=== PATIENT | male | born 1970 ===

== ENCOUNTER 2018-11-13 05:44 | Inpatient (IN) | payer OTHER ==
[2018-11-13] VITALS (13 sets, daily range): BP systolic 93–115; BP diastolic 53–78
[~2018-11-13] VITALS: Ht 180.3 cm; Wt 99.4 kg
[2018-11-13] MEDS ORDERED: Thrombin 5000 units TOPIC ONE ×2 (06:51→09:31)
[2018-11-13] MEDS ORDERED: Bacitracin 50000 Units Vial ONE (06:51)
[2018-11-13] MEDS ORDERED: Bupivacaine w/Epi 0.5% 30ml Vial INJ ONE ×2 (06:51→09:03)
[2018-11-13] MEDS ORDERED: ceFAZolin sod 1 GM in NS 55 ML IVPB ONE (07:00)
[2018-11-13] MEDS ORDERED: fentaNYL 100 mcg/2 mL IV ONE (08:11)
[2018-11-13] MEDS ORDERED: Midazolam 2mg/2ml Inj ONE (08:11)
[2018-11-13] MEDS ORDERED: Zemuron 50mg/5ml Inj IV ONE (08:15)
[2018-11-13] MEDS ORDERED: Vancomycin 1gm inj IVPB ONE (08:15)
[2018-11-13] MEDS ORDERED: ACETAMINOPHEN-1 EAC1 ORAL (08:20)
[2018-11-13] MEDS ORDERED: IBUPROFEN600 MG ORAL (08:21)
[2018-11-13] MEDS ORDERED: CYCLOBENZAPRINE10 MG ORAL (08:22)
[2018-11-13] MEDS ORDERED: FLUTICASONE PRO16 G1 NASAL (08:24)
[2018-11-13] MEDS ORDERED: MULTIVITAMINS1 EA11 ORAL (08:24)
[2018-11-13] MEDS ORDERED: [UNRECOGNIZED DRUG - OTHER] PO (08:26)
--- NOTE | 2018-11-13 08:51 | Pre-Procedure Note/Attestation ---
Pre-Procedure Note/Attestation Complete Prior to Procedure Procedure Narrative: L5S1 R redo laminectomy/discectomy Indications for Procedure Pre-Operative Diagnosis: L5S1 recurrent HNP Attestation I attest that I discussed the nature of the procedure; its benefits; risks and complications; and alternatives (and the risks and benefits of such alternatives ), prior to the procedure, with the patient (or the patient's legal bilingual call center representative). I attest that, if there was a reasonable possibility of needing a blood transfusion, the patient (or the patient's legal bilingual call center representative) was given the [facility] standardized written summary, pursuant to the Jorge Luis Keli Blood Safety Act ([place] Health and Safety Code # 1645, as amended). I attest that I re-evaluated the patient just prior to the surgery and that there has been no change in the patient's H&P, except as documented below: Mark Maloney MD Nov 13, 2018 08:51
--- NOTE | 2018-11-13 08:52 | Brief Operative Note ---
Immediate Post Operative Note Operative Note Pre-op Diagnosis: L5S1 recurrent HNP Procedure: L5s1 redo lami/discectomy Post-op Diagnosis: same as pre-op Findings: consistent w/pre-op dx studies Surgeon: lexie Onion Farmer: rupinder calloway Anesthesiologist: rubi Anesthesia: general Specimen: yes Complications: none Condition: stable Fluids: 1200 Estimated Blood Loss: minimal Drains: none Implant(s) used?: No Mark Maloney MD Nov 13, 2018 08:52
[2018-11-13] MEDS ORDERED: Glycopyrrolate 0.2mg/ml 1ml Vial ONE (09:18)
[2018-11-13] MEDS ORDERED: Ketorolac 30mg Inj ONE (09:18)
[2018-11-13] MEDS ORDERED: Morphine Sulfate 10mg/ml Inj ONE (09:18)
[2018-11-13] MEDS ORDERED: Sodium Chloride 10ml vial INJ ONE (09:18)
[2018-11-13] MEDS ORDERED: Bacitracin 50000 Units Vial IRRIG ONE (09:32)
[2018-11-13] MEDS ORDERED: NS Irrig 1000ml IRRIG ONE (09:33)
[2018-11-13] MEDS ORDERED: Sterile Water Irrig 1000ml IRRIG ONE (09:33)
--- NOTE | 2018-11-13 09:35 | Anethesia Preoperative Eval ---
Anesthesia Pre-op PMH/ROS General Date of Evaluation: Nov 13, 2018 Time of Evaluation: 08:20 Anesthesiologist: Domenico ASA Score: ASA 2 Mallampati Score Class I : Soft palate, uvula, fauces, pillars visible Class II: Soft palate, uvula, fauces visible Class III: Soft palate, base of uvula visible Class IV: Only hard plate visible Mallampati Classification: Class II Surgeon: Amara Diagnosis: Lumbar radiculopathy Surgical Procedure: L5-S1 laminotomy Anesthesia History: none Family History: no anesthesia problems Allergies: Coded Allergies: PENICILLINS (Verified Allergy, Intermediate, swelling, 11/13/18) SULFA (SULFONAMIDE ANTIBIOTICS) (Verified Allergy, Intermediate, itching, 11/13/18) Medications: see eMAR Patient NPO?: Yes NPO Date: Nov 12, 2018 NPO Time: 2300 Past Medical History Cardiovascular: Denies: HTN, CAD, [place], valve dz, arrhythmia, other Pulmonary: Reports: asthma - mild; Denies: COPD, SINDY, other Gastrointestinal/Genitourinary: Reports: GERD - mild; Denies: CRI, ESRD, other Neurologic/Psychiatric: Reports: other - chronic pain; Denies: dementia, CVA, depression/anxiety, TIA Endocrine: Denies: DM, hypothyroidism, steroids, other HEENT: Denies: cataract (L), cataract (R), glaucoma, PAUMA (L), PAUMA (R), other Hematology/Immune: Denies: anemia, DVT, bleeding disorder, other Musculoskeletal/Integumentary: Denies: OA, RA, DJD, DDD, edema, other Other: other - overweight PMH Narrative: as above PSxH Narrative: Back Sx, knee scope Anesthesia Pre-op Phys. Exam Physician Exam Last Vital Signs Date Time Temp Pulse Resp B/P (MAP) Pulse Ox O2 Delivery O2 Flow Rate FiO2 11/13/18 08:12 Room Air 11/13/18 07:11 97.7 63 18 102/64 (77) 98 Constitutional: NAD Neurologic: CN 2-12 intact Cardiovascular: RRR, no M/R/G Respiratory: CTA Gastrointestinal: S/NT/ND Airway Exam Mallampati Score: Class II MO: full Neck: flexible ROM: full Teeth: intact Dentures: no upper, no lower Anesthesia Pre-op A/P Labs see chart Studies Pre-op Studies: EKG - NSR Risk Assessment & Plan Assessment: ASA 2 Plan: GA with ETT< prone position neuromonitoring Status Change Before Surgery: No Pre-Antibiotics Drug: Vancomycin 1gr Given Within 1 Hr of Incision: Yes Time Given: 09:12 Juan Acuña MD Nov 13, 2018 09:35
[2018-11-13] MEDS ORDERED: LR 1000ml 1,000 ML IVLG SCH (09:36)
[2018-11-13] MEDS ORDERED: Meperidine 50mg/ml Inj(FOR RIGORS ONLY) IV PRN (09:45)
[2018-11-13] MEDS ORDERED: fentaNYL 100 mcg/2 mL IV PRN (09:45)
[2018-11-13] MEDS ORDERED: Acetaminophen (Non formulary) 100 ML IV ONE (09:45)
[2018-11-13] MEDS ORDERED: Ketorolac 30mg Inj IV PRN (09:45)
[2018-11-13] MEDS ORDERED: Midazolam 2mg/2ml Inj IVP PRN (09:45)
[2018-11-13] MEDS ORDERED: DiphenhydrAMINE 50mg/ml Inj IVP PRN (09:45)
[2018-11-13] MEDS ORDERED: Milk of Magnesia 30ml Ud ORAL PRN (10:30)
[2018-11-13] MEDS ORDERED: Metoclopramide 10mg/2ml Inj IVP PRN (10:30)
--- NOTE | 2018-11-13 10:52 | Immediate Post-Op Evaluation ---
Immediate Post-Op Evalulation Immediate Post-Op Evalulation Procedure: L5-X0qnthspibjq with decompression Date of Evaluation: Nov 13, 2018 Time of Evaluation: 10:51 IV Fluids: 1400 Blood Products: none Estimated Blood Loss: 50 Urinary Output: 150 Blood Pressure Systolic: 97 Blood Pressure Diastolic: 56 Pulse Rate: 74 Respiratory Rate: 20 O2 Sat by Pulse Oximetry: 99 Temperature (Fahrenheit): 97.6 Pain Score (1-10): 1 Nausea: No Vomiting: No Complications none Patient Status: reacts, patent, extubated, none Hydration Status: adequate Juan Acuña MD Nov 13, 2018 10:52
--- NOTE | 2018-11-13 10:59 | Diagnostic Imaging Report ---
INDICATION: Pain, intraoperative TECHNIQUE: Intraoperative imaging Fluoroscopy time: 1.8 seconds Total dose: 0.72 mGy Total number of images: One COMPARISON: None FINDINGS: Single intraoperative image demonstrates a surgical tool posterior to S1 IMPRESSION: Intraoperative imaging, as described
[2018-11-13] MEDS ORDERED: Chloraseptic Spray 20mL Bottle ORAL PRN (13:15)
[2018-11-13] MEDS ORDERED: HYDROmorphone 1mg/ml Carpuject SUBQ SCH (13:15)
[2018-11-13] MEDS ORDERED: Tamsulosin 0.4mg cap ORAL SCH (13:15)
[2018-11-13] MEDS ORDERED: Bethanechol 25mg Tab ORAL SCH (13:15)
[2018-11-13] MEDS ORDERED: Cyclobenzaprine 10mg Tab ORAL PRN (13:15)
[2018-11-13] MEDS: D5 1/2NS 1,000 ML IV SCH ×2 (13:37→21:18)
--- NOTE | 2018-11-13 14:52 | Cardiology Progress Note ---
Assessment/Plan Assessment/Plan hs o furinary retention psot op nausea i/o cath as needed for in ability to urinate [id number] Objective Last 24 Hour Vital Signs Date Time Temp Pulse Resp B/P (MAP) Pulse Ox O2 Delivery O2 Flow Rate FiO2 11/13/18 14:09 97.1 11/13/18 12:23 65 20 110/65 100 Nasal Cannula 3 11/13/18 12:15 68 20 95/53 100 Nasal Cannula 3 11/13/18 12:00 68 20 95/53 100 Simple Mask 8 11/13/18 11:45 68 20 95/53 100 Simple Mask 8 11/13/18 11:31 68 20 95/53 100 Simple Mask 8 11/13/18 11:20 60 20 98/62 100 Simple Mask 8 11/13/18 11:10 68 20 93/61 100 Simple Mask 8 11/13/18 11:05 68 20 95/53 100 Simple Mask 8 11/13/18 10:58 68 20 95/53 100 Simple Mask 8 11/13/18 10:53 97.1 84 20 94/56 100 Simple Mask 8 11/13/18 10:52 74 20 99 11/13/18 08:12 Room Air 11/13/18 07:11 97.7 63 18 102/64 (77) 98 Matt Lozada MD Nov 13, 2018 14:52
--- NOTE | 2018-11-13 16:30 | Operative Note - Dictated ---
DATE OF OPERATION: 11/13/2018 SURGEON: Mark Maloney M.D. MAT GAUGER: Mark Anthony POOLE. ANESTHESIOLOGIST: Juan Acuña M.D. ANESTHESIA TYPE: General endotracheal anesthesia PREOPERATIVE DIAGNOSIS: L5-S1 recurrent disc herniation, right side with radiculopathy. POSTOPERATIVE DIAGNOSIS: L5-S1 recurrent disc herniation, right side with radiculopathy. PROCEDURE: 1. Re-do laminectomy and diskectomy, right L5-S1. 2. Operating through scarred and altered tissue anatomy. 3. Use of fluoroscopy for localization. 4. Use of operating microscope. 5. Neurodiagnostic monitoring. ESTIMATED BLOOD LOSS: Minimal. COMPLICATIONS: None. FLUIDS: 1200. FINDINGS: Extensive scarring about the L5 and S1 nerve root with large contained disk herniation. INDICATIONS: The patient is a very pleasant gentleman with fairly intractable right lower extremity radicular pain, status post prior laminectomy and diskectomy who failed conservative measures. MRIs demonstrated large recurrent disc herniation. Surgical options were discussed. He elected to proceed. OPERATIVE PROCEDURE IN DETAIL: The patient was taken to the operative suite. After general endotracheal anesthesia was obtained, Shea catheter was placed. He was placed prone onto a radiolucent table. All bony prominences were well padded. The back was prepped and draped in usual sterile fashion. At this point, the skin was infiltrated with Marcaine with epinephrine. Prior incision was used and incision was carried out to the subcutaneous. The dorsal fascia was identified but was felt to be the spinous process of L5 was palpated. Bovie was used to cauterize through the dorsal lumbar fascia at its bony attachment. An oblique approach was taken in order to avoid neural injury. The S1 lamina was identified and this was used as a landmark. A probe was placed at the upper edge of the S1 lamina and fluoroscopically confirmed. Self-retaining retractors were brought in place. Operating microscope was brought in place. Debulking of the scar tissue was performed. The leading edge of the L5 lamina was then identified and with the use of Bovie was denuded of scar tissue. At this point, the medial edge of the remaining portion of the facet joint was identified. Under high-field image magnification, a high-speed drill was then used and the leading edge of lamina of L5 as well as medial portion of the facet at L5-S1 was drilled out. Curved curette was used to undermine the levels. At this point, a Kerrison 3-punch was then used to remove the leading edge of the lamina as well as the medial facets. Extensive scarring was identified. At this point, we had to remove little bit more of the facet joints in order to be able to approach the disc from a slightly more lateral approach as we were unable to identify the actual plane between the dural sac and disc herniation. The disk was then entered through a lateral approach and with use of a down pushing curette, the contained disc herniation was pushed into the disk space and then removed in a piecemeal fashion until there was no further pressure palpated with the retractor. This was performed using multiple times using straight and angled pituitaries as well as down pushing curettes and dental probe. Once the disk was cleared out of any obvious and further loose fragments or any fragments in the subligamentous space, it was then irrigated and bone wax was applied to all bleeding bone edges. FloSeal was applied to achieve maximal hemostasis. Decision was made to close. Fascia was repaired using #1 Vicryl, subcutaneous closure using 2-0 Vicryl. Dermabond was then applied and a sterile 2 x 2 and Tegaderm was applied. At the time of this dictation, the patient was awaiting extubation. Mark Maloney M.D. DR: Cait JOB#: [id number] CC: ANA CRISTINA
[2018-11-13] MEDS: HYDROmorphone 1mg/ml Carpuject SUBQ PRN (16:34)
[2018-11-13] MEDS: Bethanechol 25mg Tab ORAL SCH (18:16)
[2018-11-13] MEDS: Docusate 100mg cap ORAL SCH (18:16)
--- NOTE | 2018-11-13 20:00 | Consultation ---
DATE OF CONSULTATION: 11/13/2018 CONSULTING PHYSICIAN: Rashid Thornton M.D. REFERRING PHYSICIAN: Mark Maloney M.D. REASON FOR CONSULTATION: Acute pain consult. HISTORY OF PRESENT ILLNESS: Dear Dr. Mark Maloney, Thank you kindly for consulting me to evaluate and render an opinion as to how to proceed in the management of acute postoperative lumbar spine pain after his revision lumbar spine surgery today. The patient is a pleasant 48-year-old gentleman, who injured his lumbar spine several years ago after a work-related injury. He underwent previous lumbar spine surgery about two years ago. However, the pain returned and he required revision lumbar spine surgery today with Dr. Maloney. The patient complains of significant pain postoperatively and you consulted me to help with his pain control. I saw the patient at bedside. I performed detailed history and physical examination. I discussed the case with the hospital pharmacist. I had the charge nurse, Kimberly ROSALES. I spoke with the recovery room nurse, Sloange ROSALES to devise the following analgesic pain help improve the patient's comfort. I spent over 75 minutes in consultation with an additional 30 minutes in medical record review. Comprehensive review of the medical record was performed including utilization review and surgical authorization records by [email or web address], authorizing surgery as certified. Preoperative records were reviewed from Dr. Clement, 11/05/2018 along with diagnostic testing. Outpatient orthopedic surgery reports by Dr. Maloney were reviewed including secondary treating physician progress report PAR-2 from date of service 07/12/2018. Multiple records were reviewed from today's date of surgery at [facility], 11/13/2018 including consent for surgical treatment, consent for anesthesia, consent for blood products, medication administration record, medication reconciliation order form, PACU record, PACU orders, anesthesia record, pre- and post anesthesia evaluation record, 24-hour medical/surgical flow sheet, initial nursing assessment, guidelines for prophylactic antibiotics, and guidelines for DVT prophylaxis. PAST MEDICAL HISTORY: 1. Acute postoperative lumbar spine pain, status post lumbar spine revision surgery by Dr. Mark Maloney October 2018. 2. Work-related injury. 3. Diverticulosis. 4. Childhood asthma. 5. Questionable benign prostatic hypertrophy. PAST SURGICAL HISTORY: Left lumbar decompressive surgery, laminectomy in September 2016, carpal tunnel surgery in August 2015,, right knee arthroscopy in 2013, and gynecomastia surgery in 2007. FAMILY HISTORY: Diabetes, hypertension, and breast cancer. SOCIAL HISTORY: The patient drinks alcohol socially. He denies tobacco or marijuana usage. ALLERGIES: Penicillin and sulfa. REVIEW OF SYSTEMS: Per Dr. Lozada. PHYSICAL EXAMINATION: GENERAL: Age 48, height 5 feet 11 inches, weight 211 pounds. Body mass index 29. VITAL SIGNS: Pulse 65, respirations 20, and blood pressure 110/65. Oxygen saturation 100% on supplemental oxygen, incentive spirometer. HEENT: Nasal cannula oxygen in place. Alert and oriented x3. CHEST: Clear to auscultation. HEART: Regular rate and rhythm. ABDOMEN: Soft. GENITOURINARY: Deferred. EXTREMITIES: Moving all extremities x4. A 5/5 dorsiflexion and 5/5 plantar flexion in bilateral lower extremities. NEUROLOGIC: Detailed neurologic exam per Dr. Maloney. Straight leg raising deferred secondary to pain. LABORATORY AND DIAGNOSTIC DATA: Diagnostic testing from 11/05/2018 shows a 12-lead EKG with normal sinus rhythm, ventricular rate 72. No evidence for acute cardiac ischemia. Questionable left atrial enlargement. Preoperative chest x-ray shows no acute cardiopulmonary disease dated 11/05/2018. MRI lumbar spine, 06/14/2018, impression L5-S1 7 mm right-sided disc extrusion with total obliteration of the right neural foramen, L4-L5 had a diffuse disk bulge measuring 2 mm with mild bi-foraminal and central canal stenosis. Laboratory studies from 11/05/2018 shows glucose 78, sodium 143, potassium 4.1, chloride 103, bicarb 30, BUN 14, and creatinine 1.2. Calcium 10.4. Total protein 7.9, albumin 4.9. AST 21, ALT 17, and alkaline phosphatase 51. Total bilirubin 0.3. White count 6, hematocrit 47, and platelets 291,000. INR 1.0, PTT 28. IMPRESSION: 1. Acute postoperative lumbar spine pain, status post lumbar spine revision surgery by Dr. Mark Maloney October 2018. 2. Work-related injury. 3. Diverticulosis. 4. Childhood asthma. 5. Questionable benign prostatic hypertrophy. TREATMENT RECOMMENDATIONS: I have devised the following analgesic plan to help the patient postoperatively. He complained of significant pain, received Demerol in recovery room. He states that he has tolerated Dilaudid in the past. I have asked the nursing and pharmacy department to immediately bolus the patient with 1 mg of subcutaneous Dilaudid as a catch-up dose, then to continue the subcutaneous Dilaudid dosing every three hours p.r.n. for severe pain. The patient does state that oxycodone, Percocet has worked well in the past, so I have ordered oxycodone instant release 10 mg every three hours p.r.n. for moderate breakthrough pain. The patient does respond to Flexeril, which he uses at home nearly twice a day. I have ordered 10 mg orally every 8 hours p.r.n. for muscle spasms. I will leave a prescription for Flexeril and Percocet for outpatient usage. The patient does state that he has had difficulties with urinary retention issues after previous surgeries. I have asked nursing and pharmacy departments to dose the patient with Flomax and urecholine now. I will continue urecholine three times a day and Flomax nightly additionally. In case of any nausea symptoms, I have ordered Zofran 4 mg intravenously every 4 hours p.r.n. as a first-line agent, with a second-line agent of Phenergan 12.5 mg intramuscular every [address] I will place the patient on Pepcid 20 mg b.i.d. for GI ulcer prophylaxis. I have ordered p.r.n. dose of Mylanta 30 mL q.6 hours in case of any GERD symptom exacerbation. I will continue the Flexeril 10 mg every 8 hours p.r.n. for muscle spasm symptoms. I have ordered Chloraseptic spray in case of any topical sore throat complaints. I have ordered Catapres 0.1 mg in case of the patient having hypertensive systolic blood pressure readings greater than [address] Lozada can adjust his medications. I will defer DVT prophylaxis to the surgeon. I have ordered incentive spirometer and encouraged good pulmonary toilet to help reduce the risk of postoperative pneumonia and atelectasis. Rashid Thornton M.D. DR: DEE DEE JOB#: [id number] CC:
[2018-11-13] MEDS: Tamsulosin 0.4mg cap ORAL SCH (21:17)
[2018-11-13] MEDS: oxyCODONE 5mg IR tab ORAL PRN (21:17)
[2018-11-13] MEDS: Vancomycin 1 GM in D5W 275 ML IVPB SCH (21:18)
[2018-11-14] VITALS: BP 106/63
--- NOTE | 2018-11-14 01:45 | Consultation ---
DATE OF CONSULTATION: 11/13/2018 CONSULTING PHYSICIAN: Matt Lozada M.D. REFERRING PHYSICIAN: Mark Maloney M.D. REASON FOR REFERRAL: Postoperative medical care. HISTORY OF PRESENT ILLNESS: This is a 48-year-old gentleman with history of spinal issues who underwent surgery by Dr. Maloney for L5-S1 laminectomy and decompression, this is apparently redo. The patient is being seen postoperatively. He has had issues with urinary retention on prior occasions. The Shea catheter has been removed. He really does not have any chest pain or shortness of breath. He is somewhat nauseated. He does have some sore throat afterwards. He was not having any pain, pressure, tightness and discomfort in his chest. PAST MEDICAL HISTORY: . He does have a history of childhood asthma. He denies any diabetes. No high blood pressure. No heart attack. No cancer. No stroke, hepatitis, tuberculosis, asthma, emphysema. No ulcers. No kidney problems, liver problems, thyroid problems, anemia, arthritis, HIV/AIDS, blood clots. He does have a history of diverticulosis, asbestos, sinusitis, sciatic nerve problem. He has had laminectomies before, carpal tunnel releases, right meniscal tear and has surgical gynecomastia many years ago. FAMILY HISTORY: Mother alive at age 65 diagnosed with diabetes and hypertension. Siblings have . SOCIAL HISTORY: Never smoked or drank, never used drugs. 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 ALLERGIES: Penicillin although his chart indicates sulfa allergy as well. REVIEW OF SYSTEMS: GASTROINTESTINAL: As mentioned somewhat nauseated, but no vomiting. He has not had a bowel movement postoperatively. GENITOURINARY: urination, although he has sensation that he may want to urinate soon. PULMONARY: Denies any coughing or wheezing. He does have some sore throat. NEUROLOGIC: negative. CARDIAC: As mentioned in the history of present illness. PHYSICAL EXAMINATION: GENERAL: Shows to be an overweight middle-aged gentleman, in no respiratory distress. NECK: Supple. No jugular venous distention. LUNGS: Clear to auscultation and percussion anteriorly. CARDIAC: Regular rate and rhythm. No heaves, thrills, or gallops noted. ABDOMEN: Soft, nontender, . He does have pneumatic compression stockings in place on both legs at this time. Preoperative labs were reviewed. EKG sinus rhythm, normal QRS axis. A chest x-ray preoperatively showed no acute cardiopulmonary disease processes. He has had laboratories with blood sugar of 78, creatinine of 1.18. White count of 5.6, hemoglobin 15.6, and platelet count of 291. Pro-Time and INR 1 and PTT 28.3. ASSESSMENT AND PLAN: 1. Postoperative nausea secondary to medications. 2. History of urinary retention. 3. Lumbar disc disease. Dr. Maloney, this patient was seen in cardiac consultation. The patient does have a history of urinary retention previously as mentioned. Bladder scans will be performed if he is unable to urinate, in and out catheters will be intermittent basis once he is able to urinate and he is able to the eat and have a bowel movement he is able to go home if that occurs within 24 hours it will be better. The patient will be followed up with Dr. Clement as an outpatient as needed. Matt Lozada M.D. DR: Lorenzo JOB#: [id number] CC:
[2018-11-14 04:00] VITALS: BP 94/55
[2018-11-14] MEDS: HYDROmorphone 1mg/ml Carpuject SUBQ PRN (06:27)
[2018-11-14 08:00] VITALS: BP_SYST 103; BP_SYST 144; BP_DIAS 100; BP_DIAS 68
[2018-11-14 09:04] LABS: BASOPHILS % (AUTO) 0.8 % (0.0-2.0); EOSINOPHILS % (AUTO) 0.6 % (0.0-3.0); HEMATOCRIT 43.9 % (42.0-52.0); HEMOGLOBIN 14.6 G/DL (14.2-18.0); LYMPHOCYTES % (AUTO) 25.5 % (20.0-45.0); MEAN CORPUSCULAR VOLUME 88 FL (80-99); NEUTROPHILS % (AUTO) 65.1 % (45.0-75.0); PLATELET COUNT 256 K/UL (150-450); RED BLOOD COUNT 4.97 M/UL (4.70-6.10); WHITE BLOOD COUNT 6.5 K/UL (4.8-10.8)
[2018-11-14] MEDS: Vancomycin 1 GM in D5W 275 ML IVPB SCH (09:15)
[2018-11-14] MEDS: Bethanechol 25mg Tab ORAL SCH ×3 (09:15→17:13)
[2018-11-14] MEDS: Docusate 100mg cap ORAL SCH ×2 (09:15→17:14)
[2018-11-14] MEDS: oxyCODONE 5mg IR tab ORAL PRN ×3 (09:29→23:40)
--- NOTE | 2018-11-14 09:31 | 48 Hour Post Anesthesia Eval ---
Post Anesthesia Evaluation Procedure: L5-N0djfrnluesi with decompression Date of Evaluation: Nov 14, 2018 Time of Evaluation: 06:55 Blood Pressure Systolic: 94 0: 55 Pulse Rate: 81 Respiratory Rate: 18 Temperature (Fahrenheit): 98.1 O2 Sat by Pulse Oximetry: 97 Airway: patent Nausea: No Vomiting: No Pain Intensity: 2 Hydration Status: adequate Cardiopulmonary Status: at baseline Mental Status/LOC: patient returned to baseline Post-Anesthesia Complications: 0 Follow-up care needed: N/A - further care as per primary team Rula Byrnes MD Nov 14, 2018 09:31
[2018-11-14 12:00] VITALS: BP 102/66
--- NOTE | 2018-11-14 12:00 | Progress Note ---
DATE: 11/14/2018 ACUTE PAIN MANAGEMENT PHYSICIAN PROGRESS NOTE MEDICATIONS: Medication administration record reviewed. Medications include Tylenol, Mylanta, Urecholine, Catapres, Flexeril, IV fluids, Benadryl, Colace, Pepcid, Dilaudid, milk of magnesia, Zofran, oxycodone, Chloraseptic spray, Phenergan, Flomax, and Restoril. LABORATORY STUDIES: From this morning, 11/14/2018, shows white count 7, hematocrit 44, and platelets 256,000. OBJECTIVE: Vital signs within normal limits. Afebrile. Pulse 81, respirations 18, blood pressure 103/68, and pulse ox 97% on room air. I saw the patient at the bedside with the nurse, RNMarycarmen. I discussed the case with the charge nurse, RNKandis, and the surgeon, Dr. Maloney. The patient has been moving in and out of bed with assistance. He does have significant pain along the midline incision area. The current analgesic regimen with p.r.n. Dilaudid, oxycodone, and Flexeril seems to be a good plan for now. The patient has been alternating doses of these various agents with good efficacy and no adverse side effects. The patient does have repeated history of urinary retention issues after surgery. Last night, he required urinary straight catheterization after 12 hours of being unable to avoid. After he was straight cath at 2 in the morning yesterday, the patient now has been able to pass some urine spontaneously, in spurts. He remains on Flomax daily along with Urecholine three times a day to help further urinary retention issues. The patient's diet is advancing and tolerated well. The patient has no nausea symptoms. 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 The patient has been having difficulty obtaining his prescriptions authorized by his insurance carrier, [employer]. Hopefully, this written prescription, which I provided, can be deposit at the local [facility] pharmacy near his home in [place], [place], to help expedite dispensing in authorization of medications. The patient will continue in the hospital for now as we monitor his urinary flow, and continue him with physical therapy training as tolerated. Rashid Thornton M.D. DR: JULIANN JOB#: [id number] CC:
[2018-11-14 16:00] VITALS: BP 114/68
--- NOTE | 2018-11-14 17:56 | Orthopedic Spine Progress Note ---
Ortho Spine - Progress Note Subjective Symptoms: c/o post-op back pain - leg pain resolved, improved - as compared to pre-op Objective Vital Signs: Last 24 Hour Vital Signs Date Time Temp Pulse Resp B/P (MAP) Pulse Ox O2 Delivery O2 Flow Rate FiO2 11/14/18 16:45 99.5 11/14/18 16:00 99.7 77 16 114/68 (83) 97 11/14/18 12:00 99.5 93 16 102/66 (78) 96 11/14/18 09:31 81 18 97 11/14/18 09:00 Nasal Cannula 3.0 Nasal Cannula 3.0 11/14/18 08:00 98.8 82 16 103/68 (80) 96 11/14/18 04:00 98.1 81 18 94/55 (68) 97 11/14/18 00:00 98.5 71 19 106/63 (77) 97 11/13/18 21:00 Nasal Cannula 3.0 Nasal Cannula 3.0 11/13/18 20:00 98.0 72 18 115/78 (90) 97 I&O: Intake and Output 11/13/18 11/14/18 19:00 07:00 Intake Total 1500 ml 1475.0 ml Output Total 125 ml 1020 ml Balance 1375 ml 455.0 ml Intake Oral 400 ml IV Total 1500 ml 1075.0 ml Output Urine Total 100 ml 1020 ml Estimated Blood Loss 25 ml # Voids 2 1 Wound: clean, intact Drains: none Neuro Status: normal Assessment Procedure Performed: L5s1 redo lami/discectomy Plan Plan: PT, pain management, discharge plan - in am if urinary hesitancy resolves , cleared by pt, and afebrile Mark Maloney MD Nov 14, 2018 17:56
[2018-11-14 20:00] VITALS: BP 103/68
--- NOTE | 2018-11-14 20:39 | Cardiology Progress Note ---
Assessment/Plan Assessment/Plan 1. Postoperative nausea secondary to medications. 2. History of urinary retention. 3. Lumbar disc disease. dogin well ia anow able to urinate home in am if ok with dr candy panchal d/w rn earlier thsi am and lat last nite on several occasions Subjective Cardiovascular: Denies: chest pain, lightheadedness, palpitations Respiratory: Denies: SOB with excertion Gastrointestinal/Abdominal: Reports: constipated, nausea Genitourinary: Reports: other - retention need i/o cath earleir subsequetly able to urinate if sits down Objective Last 24 Hour Vital Signs Date Time Temp Pulse Resp B/P (MAP) Pulse Ox O2 Delivery O2 Flow Rate FiO2 11/14/18 16:45 99.5 11/14/18 16:00 99.7 77 16 114/68 (83) 97 11/14/18 12:00 99.5 93 16 102/66 (78) 96 11/14/18 09:31 81 18 97 11/14/18 09:00 Nasal Cannula 3.0 Nasal Cannula 3.0 11/14/18 08:00 98.8 82 16 103/68 (80) 96 11/14/18 04:00 98.1 81 18 94/55 (68) 97 11/14/18 00:00 98.5 71 19 106/63 (77) 97 11/13/18 21:00 Nasal Cannula 3.0 Nasal Cannula 3.0 General Appearance: no apparent distress, alert Neck: supple Cardiovascular: normal rate, regular rhythm Respiratory/Chest: lungs clear, normal breath sounds Abdomen: normal bowel sounds, non tender, soft Extremities: no swelling Intake and Output 11/13/18 11/14/18 18:59 06:59 Intake Total 1400 ml 1575.0 ml Output Total 125 ml 1020 ml Balance 1275 ml 555.0 ml Intake Oral 400 ml IV Total 1400 ml 1175.0 ml Output Urine Total 100 ml 1020 ml Estimated Blood Loss 25 ml # Voids 2 1 Laboratory Tests Test 11/14/18 07:10 White Blood Count 6.5 K/UL (4.8-10.8) Red Blood Count 4.97 M/UL (4.70-6.10) Hemoglobin 14.6 G/DL (14.2-18.0) Hematocrit 43.9 % (42.0-52.0) Mean Corpuscular Volume 88 FL (80-99) Mean Corpuscular Hemoglobin 29.3 PG (27.0-31.0) Mean Corpuscular Hemoglobin Concent 33.2 G/DL (32.0-36.0) Red Cell Distribution Width 12.0 % (11.6-14.8) Platelet Count 256 K/UL (150-450) Mean Platelet Volume 5.4 FL (6.5-10.1) L Neutrophils (%) (Auto) 65.1 % (45.0-75.0) Lymphocytes (%) (Auto) 25.5 % (20.0-45.0) Monocytes (%) (Auto) 8.0 % (1.0-10.0) Eosinophils (%) (Auto) 0.6 % (0.0-3.0) Basophils (%) (Auto) 0.8 % (0.0-2.0) Matt Lozada MD Nov 14, 2018 20:39
[2018-11-14] MEDS: Tamsulosin 0.4mg cap ORAL SCH (21:11)
[2018-11-15] VITALS: BP 112/70
[2018-11-15 04:00] VITALS: BP 111/64
[2018-11-15] MEDS: oxyCODONE 5mg IR tab ORAL PRN ×2 (06:04→11:04)
[2018-11-15 08:00] VITALS: BP 105/63
--- NOTE | 2018-11-15 08:47 | Orthopedic Spine Progress Note ---
Ortho Spine - Progress Note Subjective Symptoms: c/o post-op back pain, improved - as compared to pre-op Objective Vital Signs: Last 24 Hour Vital Signs Date Time Temp Pulse Resp B/P (MAP) Pulse Ox O2 Delivery O2 Flow Rate FiO2 11/15/18 08:00 99.2 11/15/18 08:00 99.2 100 16 105/63 (77) 100 11/15/18 04:00 99.5 86 18 111/64 (80) 98 11/15/18 00:00 98.6 76 18 112/70 (84) 99 11/14/18 21:00 Room Air Room Air 11/14/18 20:00 98.8 82 16 103/68 (80) 96 11/14/18 16:45 99.5 11/14/18 16:00 99.7 77 16 114/68 (83) 97 11/14/18 12:00 99.5 93 16 102/66 (78) 96 11/14/18 09:31 81 18 97 11/14/18 09:00 Nasal Cannula 3.0 Nasal Cannula 3.0 I&O: Intake and Output 11/14/18 11/15/18 19:00 07:00 Intake Total 920 ml 100 ml Balance 920 ml 100 ml Intake Oral 920 ml 100 ml # Voids 2 2 Wound: clean, dry, intact Drains: none Neuro Status: normal Assessment Procedure Performed: L5s1 redo lami/discectomy Plan Plan: PT, pain management, discharge to home Mark Maloney MD Nov 15, 2018 08:47
[2018-11-15] MEDS: Bethanechol 25mg Tab ORAL SCH (09:12)
[2018-11-15] MEDS: Docusate 100mg cap ORAL SCH (09:12)
--- NOTE | 2018-11-15 10:00 | Progress Note ---
DATE: 11/15/2018 ACUTE PAIN MANAGEMENT PHYSICIAN PROGRESS NOTE MEDICATIONS: Medication administration record reviewed. Medications include Restoril, Flomax, Phenergan, Chloraseptic spray, Roxicodone, Zofran, milk of magnesia, Dilaudid, Pepcid, Colace, Benadryl, Flexeril, Catapres, Urecholine, Mylanta, and Tylenol. LABORATORY STUDIES: From yesterday, 11/14/2018, shows white count 7, hematocrit 44, and platelets 256,000. OBJECTIVE: VITAL SIGNS: Afebrile, pulse 100, respirations 16, blood pressure 105/63, and oxygen saturation 100% on room air. I saw the patient at the bedside with the nurse RN, Brian, and physical therapist, Brandan. The patient is ambulating better. He still has a guarded gait, but the patient is improving and we continue to teach the patient proper technique. The patient has been able to sleep well. The current analgesic plan seems adequate and we will continue the oral oxycodone with the breakthrough Dilaudid and Flexeril here in the hospital. I did leave a prescription for Flexeril and Percocet for outpatient usage. The patient is asking when he can shower, I deferred the answer to Dr. Maloney, who will likely discharge the patient later today. The patient does have extended family and friends near his home in [place], [place] to assist with activities of daily living. The patient has had urinary retention issues, but over the past 48 hours these have improved. The patient is still complaining of mild burning and I will dose him with Pyridium 200 mg x1. I did job counselor the patient that his urine color may turn to yellow and not to be alarmed. The patient will continue using his incentive spirometer for good pulmonary toilet. The back dressing wound appears clean and dry at this time. I see no contraindication for discharge trial home at this time whenever the patient home is available. Rashid Thornton M.D. DR: JULIANN JOB#: [id number] CC:
[2018-11-15] MEDS ORDERED: PERCOCET 10-321 EACH ORAL (11:34)
[2018-11-15] MEDS ORDERED: CYCLOBENZAPRINE10 MG ORAL (11:36)
[2018-11-15 12:00] VITALS: BP 115/74
--- NOTE | 2018-11-16 08:11 | Discharge Summary ---
Discharge Summary Discharge Summary _ DATE OF ADMISSION: 11/13/2018 DATE OF DISCHARGE: 11/15/2018 DISCHARGED BY: Dr. Merrill CONSULTANTS: Dr. Rashid Thornton BRIEF HOSPITAL COURSE: Patient is a 48-year-old male, with fairly intractable right lower extremity radicular pain, status post prior laminectomy and discectomy who failed conservative measures. MRI demonstrated a large recurrent disc herniation. Surgical options were discussed. He elected to proceed with surgery. Patient was admitted on 11/13/2018 and underwent redo laminectomy and discectomy on right L5-S1. He tolerated procedure well. Surgery was uneventful. Post- operatively, patient was admitted for post-op care. He was placed on SCDs for DVT prophylaxis and was encouraged use of incentive spirometer. Patient was given pain management and was seen by the picture painter. Postoperatively he had inability to urinate. An in and out catheterization was done. He was given Flomax and Urecholine. His symptoms eventually resolved. He was seen by PT and OT. Diet was advanced. He had postop nausea that responded with Zofran. Incision was clean, dry and intact. Patient was ambulating well with good pain control and tolerating diet. Patient was eventually cleared for discharge home. PREOPERATIVE DIAGNOSIS: L5-S1 recurrent disc herniation, right side with radiculopathy. POSTOPERATIVE DIAGNOSIS: L5-S1 recurrent disc herniation, right side with radiculopathy. PROCEDURE: 1. Re-do laminectomy and diskectomy, right L5-S1. 2. Operating through scarred and altered tissue anatomy. 3. Use of fluoroscopy for localization. 4. Use of operating microscope. 5. Neurodiagnostic monitoring. DISPOSITION: Patient was discharged home. DISCHARGE MEDICATIONS: Refer to Discharge Medication List. DISCHARGE INSTRUCTIONS: Follow-up in a week. I have been assigned to dictate discharge summary on this account, and I was not involved in the patient's management. Nhi Schmid NP Nov 16, 2018 08:11
== END 2018-11-15 10:20 | disposition home or self-care (01) | DRG 520 ==
LOC: SDSOVERFLO 05:44 → 3E 12:57
PROC: 01NB0ZZ Release Lumbar Nerve, Open Approach (ICD-10-PCS; principal; 2018-11-13 08:30)
PROC: 0SB40ZZ Excision of Lumbosacral Disc, Open Approach (ICD-10-PCS; principal; 2018-11-13 08:30)
DX: M51.17 Intervertebral disc disorders with radiculopathy, lumbosacral region (principal); G54.4 Lumbosacral root disorders, not elsewhere classified; K57.90 Diverticulosis of intestine, part unspecified, without perforation or abscess without bleeding; J45.20 Mild intermittent asthma, uncomplicated; J32.9 Chronic sinusitis, unspecified; Z88.0 Allergy status to penicillin; Z88.2 Allergy status to sulfonamides; R11.0 Nausea; T50.905A Adverse effect of unspecified drugs, medicaments and biological substances, initial encounter; R33.9 Retention of urine, unspecified; Z98.890 Other specified postprocedural states; E66.9 Obesity, unspecified; Z68.29 Body mass index [BMI] 29.0-29.9, adult
CPT/HCPCS: 36415; 72020; 76001; 85025; 86850; 86900; 86901; 87081; 94003; 94150; J2250; J2405